=== PATIENT | female | born 1975 | race Caucasian/White ===

== ENCOUNTER 2023-10-20 18:00 | Emergency (ER) | payer OTHER ==
[~2023-10-20] VITALS: Ht 160 cm; Wt 77.2 kg
[2023-10-20 18:19] VITALS: BP 127/82; PULSE 100; RESP 16; TEMP 98.3; O2SAT 100
[2023-10-20] MEDS: KETOROLAC TROMETH 30 MG/ML 1ML VIAL IM ONE (18:35)
[2023-10-20] MEDS ORDERED: CYCL-837 PO (18:36)
[2023-10-20] MEDS ORDERED: IBUP-1455 PO (18:36)
== END 2023-10-20 18:41 | disposition home or self-care (01) ==
LOC: EDBD 18:00 → ER 18:00
DX: M25.512 Pain in left shoulder (principal); M54.2 Cervicalgia; M79.604 Pain in right leg; E11.9 Type 2 diabetes mellitus without complications; Z88.1 Allergy status to other antibiotic agents; V49.88XA Car occupant (driver) (passenger) injured in other specified transport accidents, initial encounter; Y93.I9 Activity, other involving external motion; Y92.89 Other specified places as the place of occurrence of the external cause; Y99.8 Other external cause status
CPT/HCPCS: 96372; 99283; J1885